=== PATIENT | male | born 1975 | race Caucasian/White ===

== ENCOUNTER 2018-03-15 11:05 | Emergency (ER) | payer OTHER ==
--- NOTE | 2018-03-15 12:08 | RADIOLOGY IMAGING REPORT ---
FACILITY: [facility] PATIENT NAME: Mich Tadeo : 1975 MR: [id number] V: [id number] EXAM DATE: ORDERING PHYSICIAN: SIMONE CABAN TECHNOLOGIST: Location: [facility] - [place] Patient: Mich Tadeo : 1975 Visit/Account:[id number] Date of Sevice: 03/15/2018 EXAMINATION: Head CT without intravenous contrast HISTORY: Double vision for one day in both eyes. COMPARISON: None. TECHNIQUE: Contiguous axial images were obtained from the skull base to the vertex without intraven ous contrast. Sagittal and coronal reformatted images are also submitted. One of the following dose optimization techniques was utilized in the performance of this exam: Autom ated exposure control; adjustment of the mA and/or kV according to the patient's size; or use of an i terative reconstruction technique. Specific details can be referenced in the facility's radiology C T exam operational policy. FINDINGS: Brain and intracranial structures: Ventricles, sulci, and cisterns are normal in size. Stuart-white ma tter differentiation is maintained. No midline shift, acute hemorrhage, acute infarct, or mass. Calvarium / scalp: Negative. Skull base / visualized face: Negative. Visualized sinuses / orbits: Moderate mucosal thickening in the ethmoid air cells. Mild mucosal thic kening in the maxillary sinuses and sphenoid sinuses. Mild mucosal thickening in the frontoethmoidal recesses. IMPRESSION: No CT evidence of acute intracranial pathology. Paranasal sinus mucosal disease. Report Dictated By: Paulino Wilder MD at 03/15/2018 11:59 AM Report E-Signed By: Paulino Wilder MD at 03/15/2018 12:05 PM WSN:[id number]
--- NOTE | 2018-03-15 12:11 | ER Report ---
History and Physical Time Seen By MD: 12:11 Hx. of Stated Complaint: DOUBLE VISION STARTED YESTERDAY AT 0900, SOME DIZZINESS, MORAN HPI/ROS 42-year-old male with no medical problems. He does not smoke cigarettes, but does admit to chewing tobacco. He works in construction. He presented to the emergency department approximately 28 hours after the onset of double vision. He has had the symptoms since 9:00 yesterday morning. The reason she waited this because he had similar symptoms 3-4 years ago that lasted only 20-30 minutes and spontaneously resolved. At that time he did see a neurologist in [place] who ordered an MRI, and told the patient the MRI was normal. He currently does not take anticoagulation medication. 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 He has no other complaints or focal neuro deficits. Does not use cocaine. He denies any chest pain. Remainder of the 14 system rev: Yes Allergies: Coded Allergies: Sulfa (Sulfonamide Antibiotics) (Verified Allergy, Intermediate, RASH, 03/15/18) codeine (Verified Adverse Reaction, Unknown, HALLUCINATIONS, 03/15/18) Home Meds No Active Prescriptions or Reported Meds Reviewed Nurses Notes: Yes Old Medical Records Reviewed: Yes Hx Smoking: No Smoking Status: Never Smoker Exposure to Second Hand Smoke?: No Hx Substance Use Disorder: No Hx Alcohol Use: No Constitutional Vital Sign - Last 24 Hours 03/15/18 03/15/18 03/15/18 03/15/18 11:18 12:57 13:00 13:15 Temp 98.8 Pulse 64 58 62 Resp 12 B/P (MAP) 141/88 127/90 (102) 118/85 (96) Pulse Ox 96 95 94 O2 Delivery Room Air 03/15/18 03/15/18 03/15/18 03/15/18 14:45 15:00 16:26 16:30 Pulse 62 66 76 B/P (MAP) 125/88 (100) 136/88 (104) Pulse Ox 95 93 93 03/15/18 03/15/18 03/15/18 03/15/18 16:45 17:00 17:15 17:30 Pulse 59 57 62 66 B/P (MAP) 138/93 (108) 149/91 (110) Pulse Ox 96 96 95 96 03/15/18 03/15/18 17:45 18:30 Pulse 69 B/P (MAP) 124/107 (113) Pulse Ox 97 Physical Exam General Appearance: The patient is alert, has no immediate need for airway protection and no signs of toxicity. Eyes: Pupils equal and round no pallor or injection. No gaze palsy. No nystagmus. No diplopia when one eye covered ENT, Mouth: Mucous membranes are moist. Respiratory: There are no retractions, lungs are clear to auscultation. Cardiovascular: Regular rate and rhythm. Gastrointestinal: Abdomen is soft and non tender, no masses, bowel sounds normal. Neurological: strength/sensation 5/5, no ataxia, no rhomberg, CN intact Skin: Warm and dry, no rashes. Musculoskeletal: Neck is supple non tender. Extremities are nontender, non-swollen and have full range of motion. DIFFERENTIAL DIAGNOSIS: After history and physical exam differential diagnosis was considered for CVA, dissection, mass, Medical Decision Making Data Points Result Diagram: 03/15/18 1337 03/15/18 1337 Laboratory Hematology Test 03/15/18 13:37 Red Blood Count 5.54 M/uL (4.00-5.60) Mean Corpuscular Volume 93.3 fL (80.0-96.0) Mean Corpuscular Hemoglobin 31.7 pg (26.0-33.0) Mean Corpuscular Hemoglobin Concent 34.0 g/dL (32.0-36.0) Red Cell Distribution Width 12.3 % (11.5-14.5) Mean Platelet Volume 7.3 fL (7.2-11.1) Neutrophils (%) (Auto) 68.5 % (39.4-72.5) Lymphocytes (%) (Auto) 22.2 % (17.6-49.6) Monocytes (%) (Auto) 7.1 % (4.1-12.4) Eosinophils (%) (Auto) 1.2 % (0.4-6.7) Basophils (%) (Auto) 1.0 % (0.3-1.4) Nucleated RBC Relative Count (auto) 0.0 /100WBC Neutrophils # (Auto) 5.2 K/uL (2.0-7.4) Lymphocytes # (Auto) 1.7 K/uL (1.3-3.6) Monocytes # (Auto) 0.5 K/uL (0.3-1.0) Eosinophils # (Auto) 0.1 K/uL (0.0-0.5) Basophils # (Auto) 0.1 K/uL (0.0-0.1) Nucleated RBC Absolute Count (auto) 0.00 K/uL Sodium Level 143 mmol/L (137-145) Potassium Level 3.9 mmol/L (3.5-5.0) Chloride Level 100 mmol/L (98-107) Carbon Dioxide Level 31 mmol/L (22-30) Blood Urea Nitrogen 13 mg/dl (9-21) Creatinine 0.80 mg/dl (0.66-1.25) Glomerular Filtration Rate Calc > 60.0 Random Glucose 83 mg/dl (75-110) Calcium Level 9.6 mg/dl (8.4-10.2) Total Bilirubin 0.9 mg/dl (0.2-1.3) Aspartate Amino Transf (AST/SGOT) 26 U/L (0-35) Alanine Aminotransferase (ALT/SGPT) 36 U/L (0-56) Alkaline Phosphatase 106 U/L (0-126) Total Protein 7.8 g/dl (6.3-8.2) Albumin 4.4 g/dl (3.5-5.0) Chemistry Test 03/15/18 13:37 White Blood Count 7.5 k/uL (4.5-11.0) Red Blood Count 5.54 M/uL (4.00-5.60) Hemoglobin 17.5 g/dL (14.0-18.0) Hematocrit 51.7 % (42.0-52.0) Mean Corpuscular Volume 93.3 fL (80.0-96.0) Mean Corpuscular Hemoglobin 31.7 pg (26.0-33.0) Mean Corpuscular Hemoglobin Concent 34.0 g/dL (32.0-36.0) Red Cell Distribution Width 12.3 % (11.5-14.5) Platelet Count 238 K/uL (150-450) Mean Platelet Volume 7.3 fL (7.2-11.1) Neutrophils (%) (Auto) 68.5 % (39.4-72.5) Lymphocytes (%) (Auto) 22.2 % (17.6-49.6) Monocytes (%) (Auto) 7.1 % (4.1-12.4) Eosinophils (%) (Auto) 1.2 % (0.4-6.7) Basophils (%) (Auto) 1.0 % (0.3-1.4) Nucleated RBC Relative Count (auto) 0.0 /100WBC Neutrophils # (Auto) 5.2 K/uL (2.0-7.4) Lymphocytes # (Auto) 1.7 K/uL (1.3-3.6) Monocytes # (Auto) 0.5 K/uL (0.3-1.0) Eosinophils # (Auto) 0.1 K/uL (0.0-0.5) Basophils # (Auto) 0.1 K/uL (0.0-0.1) Nucleated RBC Absolute Count (auto) 0.00 K/uL Glomerular Filtration Rate Calc > 60.0 Calcium Level 9.6 mg/dl (8.4-10.2) Total Bilirubin 0.9 mg/dl (0.2-1.3) Aspartate Amino Transf (AST/SGOT) 26 U/L (0-35) Alanine Aminotransferase (ALT/SGPT) 36 U/L (0-56) Alkaline Phosphatase 106 U/L (0-126) Total Protein 7.8 g/dl (6.3-8.2) Albumin 4.4 g/dl (3.5-5.0) ED Course/Re-evaluation ED Course 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 The patient is still having symptoms, but he states they are improving slightly. He is being given a full aspirin. He'll be transferred to [facility] for further workup of the source of his CVA. Decision to Disposition Date: Mar 15, 2018 Decision to Disposition Time: 19:02 Depart Departure Latest Vital Signs Vital Signs Date Time Temp Pulse Resp B/P (MAP) Pulse Ox O2 Delivery O2 Flow Rate FiO2 03/15/18 18:30 124/107 (113) 03/15/18 17:45 69 97 03/15/18 11:18 98.8 12 Room Air Impression: Primary Impression: CVA (cerebral vascular accident) Condition: Improved Disposition: XFER TO [facility] New Scripts No Active Prescriptions or Reported Meds Problem Qualifiers Primary Impression: CVA (cerebral vascular accident) CVA mechanism: unspecified Qualified Codes: I63.9 - Cerebral infarction, unspecified SIMONE CABAN MD Mar 15, 2018 12:11
[2018-03-15] MEDS ORDERED: MECLIZINE HCL 25 MG TAB PO ONE (13:00)
[2018-03-15 13:47] LABS: PLATELET COUNT, AUTOMATED 238 K/uL (150-450)
[2018-03-15] MEDS ORDERED: GADOBENATE 529MG/1ML 15ML VIAL IVP ONE (13:53)
[2018-03-15] MEDS ORDERED: NS(*) 0.9% 50 ML BAG 50 ML ONE (13:53)
--- NOTE | 2018-03-15 14:16 | RADIOLOGY IMAGING REPORT ---
FACILITY: [facility] PATIENT NAME: Mich Tadeo : 1975 MR: [id number] V: [id number] EXAM DATE: [id number] ORDERING PHYSICIAN: SIMONE CABAN TECHNOLOGIST: [place] [facility] [place] Tade[place] : 1975 Visit/Account:[id number] Date of Sevice: 03/15/2018 Exam type: ORBITS FOREIGN BODY 1 VIEW History: mri Comparison: None. Findings: No metallic foreign bodies project over the orbits IMPRESSION: 1. No metallic foreign bodies project over the orbits Report Dictated By: Breann Miller MD at 03/15/2018 2:12 PM Report E-Signed By: Breann Miller MD at 03/15/2018 2:12 PM WSN:[id number]
[2018-03-15] MEDS ORDERED: LORazepam 2 MG/ML VIAL IVP ONE (14:35)
--- NOTE | 2018-03-15 16:49 | RADIOLOGY IMAGING REPORT ---
FACILITY: [facility] - [place] PATIENT NAME: Mich Tadeo : 1975 MR: [id number] V: [id number] EXAM DATE: ORDERING PHYSICIAN: SIMONE CABAN TECHNOLOGIST: Location: [facility] Patient: Mich Tadeo : 1975 Visit/Account:[id number] Date of Sevice: 03/15/2018 EXAMINATION: Brain MRI without IV contrast HISTORY: Binocular double vision. COMPARISON: None. TECHNIQUE: Multi-planar, multi-sequence brain MRI was performed without IV contrast administration. FINDINGS: Brain and other intracranial structures: Small focus of restricted diffusion in the right side of th e upper midbrain, immediately posterior to the red nucleus and lateral to the cerebral aqueduct. Ther e is a tiny focus of restricted diffusion in the cortex of the left frontal lobe at the posterior lef t middle frontal gyrus. There are couple small T2 hyperintense foci in the left frontal white matter in the centrum semiovale. No midline shift, mass, or hemorrhage. Calvarium / scalp: Negative. Skull base: Negative. Visualized sinuses / orbits: Mild mucosal thickening in the paranasal sinuses. IMPRESSION: Small acute infarct in the right side of the midbrain. Small acute infarct in the cortex of the left frontal lobe. A couple small T2 hyperintense foci in the left frontal white matter are nonspecific. These findings were discussed with SIMONE CABAN at 03/15/2018 4:35 PM. Report Dictated By: Paulino Wilder MD at 03/15/2018 4:28 PM Report E-Signed By: Paulino Wilder MD at 03/15/2018 4:46 PM WSN:[id number]
--- NOTE | 2018-03-15 16:57 | RADIOLOGY IMAGING REPORT ---
[place] [facility] [place]IENT NAME: Mich Tadeo : 1975 MR: [id number] V: [id number] EXAM DATE: ORDERING PHYSICIAN: SIMONE CABAN TECHNOLOGIST: Location: [facility] - [place] Patient: Mich Tadeo : 1975 Visit/Account:[id number] Date of Sevice: 03/15/2018 EXAMINATION: MRA of the [place] of [place] HISTORY: Binocular double vision. COMPARISON: None. TECHNIQUE: 4X-higs-wr-flight angiography was performed in the axial plane on the [place] of [place] without IV mich olinium. The exam was tailored for assessment of the [place] of [place] only. Only limited sequences were obtai kev of the rest of the brain. FINDINGS: Carotids: Negative. Anterior/posterior communicating arteries: Negative. Anterior cerebral arteries: Negative. Middle cerebral arteries: Negative. Posterior cerebral arteries: The P1 segments of the posterior cerebral arteries are hypoplastic, a no rmal anatomic variation. Intracranial vertebral arteries: Negative. Basilar artery: Negative. PICA/AICA/SCA: Negative. IMPRESSION: Normal MRA of the [place] of [place] without evidence of intracranial aneurysm. Report Dictated By: aPulino Wilder MD at 03/15/2018 4:46 PM Report E-Signed By: Paulino Wilder MD at 03/15/2018 4:52 PM WSN:[id number]
--- NOTE | 2018-03-15 17:01 | RADIOLOGY IMAGING REPORT ---
FACILITY: [facility] PATIENT NAME: Mich Tadeo : 1975 MR: [id number] V: [id number] EXAM DATE: ORDERING PHYSICIAN: SIMONE CABAN TECHNOLOGIST: Location: [facility] - [place] Patient: Mich Tadeo : 1975 Visit/Account:[id number] Date of Sevice: 03/15/2018 EXAMINATION: MRA of the neck without IV contrast MRA of the neck with IV contrast HISTORY: Binocular double vision. COMPARISON: None. TECHNIQUE: A preliminary fat suppressed axial sequence was obtained in the mid-upper neck (for asses sment of dissection) followed by non-gadolinium enhanced 3D-time of flight angiography in the axial p gypsy on the carotid bifurcations. The patient received a bolus of intravenous gadolinium during which coronal 3D-time of flight angiography was performed from the aortic arch through the skull valley of Willi s. 3D and 2D sagittal and coronal reformatted images were obtained form the source data. Engineering Laboratory Technician images have been stored on PACS. Stenosis of the internal carotid arteries are calculated using LUCILA CET criteria. Contrast: 15 mL of IV MultiHance FINDINGS: Angiographic Findings: Aortic arch/great vessel origins: Negative. Right CCA/ICA: Negative. 0% stenosis of the origin of the right ICA. Left CCA/ICA: Negative. 0% stenosis of the origin of the left ICA. Vertebrobasilar: Negative. [place] of [place]: Negative. IMPRESSION: Normal MRA of the neck without evidence of arterial dissection or significant stenosis. Report Dictated By: Paulino Wilder MD at 03/15/2018 4:52 PM Report E-Signed By: Paulino Wilder MD at 03/15/2018 4:58 PM WSN:[id number]
[2018-03-15] MEDS ORDERED: ASPIRIN 325 MG TAB PO ONE (17:35)
[2018-03-15 19:00] VITALS: BP 139/95
== END 2018-03-15 19:10 | disposition short-term general hospital (02) ==
LOC: ER 11:33
DX: I63.9 Cerebral infarction, unspecified (principal)
CPT/HCPCS: 70030; 70450; 70544; 70549; 70551; 85025; 96374; 99285; A9577; J2060; J7050; 82040; 82247; 82310; 82374; 82435; 82565; 82947; 84075; 84132; 84155; 84295; 84450; 84460; 84520

== ENCOUNTER → 2018-03-15 | Outpatient (CLI) | payer OTHER | LOC: AMB 18:55 | PROVIDERS: ATTEND Nurse Practitioner | DX: I63.9 Cerebral infarction, unspecified (principal) | CPT/HCPCS: A0425; A0426 ==